=== PATIENT | male | born 1980 | race African-American/Black ===

== ENCOUNTER 2019-03-10 10:34 | Day surgery (SDC) | payer BC ==
--- NOTE | 2019-03-07 16:22 | Short Stay Summary ---
Short Stay Documentation Date of service: 03/10/19 - History H&P: obtained from office - Allergies and Medications Current Medications: Allergies No Known Allergies Allergy (Unverified 03/07/19 12:30) Home Medications Medication Instructions Recorded Confirmed Last Taken Type Atorvastatin 40 mg PO DAILY 03/07/19 03/07/19 Unknown History - Physical exam General appearance: no acute distress Integumentary: no rash, no abnormal pigmentation HEENT: Atraumatic Lungs: Normal air movement Neurological: Normal speech - Brief post op/procedure progress note Date of procedure: 03/10/19 (dictation:[id number]) Pre-op diagnosis: left chest mass Post-op diagnosis: same Procedure: Excision of left chest skin mass IVF - 900cc EBL min Anesthesia: GETA Findings: 3x2cm cylindrical mass Surgeon: ASAD FOX Estimated blood loss: minimal Pathology: list (skin mass) Specimen disposition: to lab Condition: stable - Hospital course Hospital course: uneventful - Disposition Condition at discharge: Stable Disposition: DC-01 TO HOME OR SELFCARE Short Stay Discharge Plan Activity: advance as tolerated Diet: regular Wound: open to air, keep clean and dry Special Instructions: no heavy lifting Additional Instructions: Post Operative Instructions Activity: no heavy lifting for next 1 week. May shower tomorrow. Pat dry the wound or wounds. Keep incision sites clean and dry After surgery, start with a light diet. Consider having a liquid diet first. If you do well, you can advance to a regular diet as you feel comfortable. Apply an ice pack to the wound or wounds for 10-20 minutes at a time. Do this at least 4-5 times a day. You can do it more if he would like. Alternate the use of ibuprofen and Tylenol for the first 2 days. I want you to take these on a scheduled basis. Take 600 mg of ibuprofen every 6 hours. Take 500 mg of Tylenol every 6 hours. You should alternate these 2 medicines. In other words, beginning with the ibuprofen. After 3 hours, take the Tylenol. Keep alternating the 2 drugs every 3 hours. Do this on a scheduled basis for the first 2 days. After that, you can take them as needed. It is very important that you use the prescription pain medicine only for very severe pain. Do not take the prescription medicine before you try using the ibuprofen and Tylenol. We will call you in a couple of days to see how youre doing. If you have any questions or concerns, always feel free to call the clinic at any time. WOUND:OPEN TO AIR, KEEP CLEAN AND DRY. CALL FOR F/U APPT. Follow up with: DR EREN [Other] - 7 Days ASAD FOX MD [Staff Physician] - 14 Days Forms: [facility] Work/School Release Form Prescriptions: HYDROcodone/APAP 5-325 [[place] 5-325 mg TAB] 1 each PO Q6HR PRN #5 tablet PRN Reason: Pain , Severe (7-10)
[~2019-03-10 10:34] MED LIST: ACETAMINOPHEN 500 MG TAB PO ONE; CELECOXIB 200 MG CAP PO NR; GABAPENTIN 300 MG CAP PO NR; MAGNESIUM OXIDE 400 MG TAB PO SCH; SODIUM CHLORIDE 0.9% 1000 ML 1,000 ML IV SCH; ceFAZolin/Water 2 GM/20 ML 2 GM/20 ML SYRINGE IV NR
--- NOTE | 2019-03-10 11:53 | Anesthesia Consultation ---
Anesthesia Consult and Med Hx Date of service: 03/10/19 - Airway Anesthetic Teeth Evaluation: Good ROM Head & Neck: Adequate Mental/Hyoid Distance: Adequate Mallampati Class: Class II Intubation Access Assessment: Good - Pulmonary Exam CTA: Yes - Cardiac Exam Cardiac Exam: RRR - Pre-Operative Health Status ASA Pre-Surgery Classification: ASA2 Proposed Anesthetic Plan: General, MAC - Pulmonary Hx Smoking: No Hx Sleep Apnea: No - Cardiovascular System Hx Hypertension: No - Central Nervous System Hx Psychiatric Problems: No - Hematic Hx Anemia: No - Other Systems Hx Alcohol Use: No Hx Substance Use: No Hx Cancer: No
--- NOTE | 2019-03-10 11:53 | Anesthesia Day of Surgery ---
Anesthesia Day of Surgery - Day of Surgery Patient Examined: Yes Patient H&P Reviewed: Yes Patient is NPO: Yes
[2019-03-10] MEDS ORDERED: HYDROmorphone 1 MG/1 ML INJ IV PRN (11:54)
[2019-03-10] MEDS ORDERED: ONDANSETRON 4 MG/2 ML INJ IV PRN (11:54)
[2019-03-10] MEDS ORDERED: MIDAZOLAM 2 MG/2 ML INJ IV NR (12:00)
[2019-03-10] MEDS ORDERED: LACTATED RINGERS 1,000 ML IV SCH (12:00)
[2019-03-10] MEDS ORDERED: ACETAMINOPHEN 500 MG TAB ONE (12:26)
[2019-03-10] MEDS ORDERED: BUPIVACAINE/PF (0.5%) 5 MG/1 ML 30 ML VIAL INFILTRATI ONE ×2 (14:00→14:37)
[2019-03-10] MEDS ORDERED: LIDOCAINE (1%) 10 MG/1 ML VIAL 20 ML MDV ONE (14:00)
[2019-03-10] MEDS ORDERED: MIDAZOLAM 2 MG/2 ML INJ ONE (14:07)
[2019-03-10] MEDS ORDERED: PROPOFOL 200 MG/20 ML VIAL IV ONE (14:07)
[2019-03-10] MEDS ORDERED: fentaNYL 100 MCG/2 ML INJ ONE (14:07)
[2019-03-10] MEDS ORDERED: LIDOCAINE MPF (2%) 20 MG/1 ML VIAL 5 ML ONE (14:07)
[2019-03-10] MEDS ORDERED: KETAMINE/STERILE WATER 50 MG/ML SYRINGE ONE (14:13)
[2019-03-10] MEDS ORDERED: LIDOCAINE (1%) 10 MG/1 ML VIAL 20 ML MDV INFILTRATI ONE (14:38)
[2019-03-10] MEDS ORDERED: SODIUM CHLORIDE 0.9% IRR 1,500 ML BOTTLE IR ONE (14:39)
--- NOTE | 2019-03-10 16:03 | Post Anesthesia Evaluation ---
- Post Anesthesia Evaluation Patient Participated: Yes Airway Patent: Yes Stable Respiratory Function: Yes Nausea/Vomiting: No Temp > 96.8F: Yes Pain Manageable: Yes Adequeate Hydration: Yes Anesthesia Complications: No
--- NOTE | 2019-03-10 16:11 | Operative Report ---
PREOPERATIVE DIAGNOSIS: Symptomatic left chest wall skin mass. POSTOPERATIVE DIAGNOSIS: Symptomatic left chest wall skin mass. PROCEDURE: Excision of left chest wall skin mass. ATTENDING PHYSICIAN: Criss Romo MD ANESTHESIA: General. ESTIMATED BLOOD LOSS: Minimal. FLUIDS: 900 mL. FINDINGS: Approximately 3.3 x 2 cm cylindrical mass in the subcutaneous tissue, appeared to be a cyst. No extension into the surrounding tissue. SPECIMENS: As above. DRAINS: None. COMPLICATIONS: None. DISPOSITION: Stable, transferred to Recovery Room. INDICATIONS: This is a 39-year-old male who reports that he has had an enlarging painful mass in the left upper chest for many years. He would like it removed as it is causing him quite a bit of discomfort. The patient was assessed to be a good candidate for excision. Procedure, risks, benefits were explained to the patient. Risks included, but were not limited to infection, bleeding, pain, injury to surrounding structures, possible need for further procedures in the future. The patient understood and consented. OPERATIVE NOTE: The patient was brought to the operating room and placed on the table in supine position. After adequate general anesthesia was established, the patient was prepped and draped in the usual sterile fashion. SCDs were in place. Antibiotics had been given. Time-out was called. I began by marking the lines of skin tension first. I applied a small amount of anesthetic in the planned incision line. I sharply dissected down to the mass itself and then carefully dissected the mass away from the surrounding tissue using a combination of sharp dissection and electrocautery. I was able to remove the mass intact. It appeared to be a cyst. Mass was measured and passed off table in sterile fashion. I injected additional local into the surrounding tissue. We had excellent hemostasis. Wound was irrigated and then I closed the deep layer with 3-0 Vicryl interrupted sutures. Skin was closed with a running 4-0 Monocryl subcuticular stitch. Skin was cleaned and dried. Dermabond was placed. The patient tolerated the procedure well. There were no complications. All counts were correct at the end of the case. JOB# [id number] LORNA/MATTHEW
[2019-03-10 16:15] VITALS: BP 129/82
== END 2019-03-10 17:10 | disposition home or self-care (01) ==
LOC: OR 10:34
PROVIDERS: ATTEND Surgery
DX: R22.2 Localized swelling, mass and lump, trunk (principal); L72.0 Epidermal cyst; E78.5 Hyperlipidemia, unspecified; Z98.890 Other specified postprocedural states; Z79.899 Other long term (current) drug therapy
CPT/HCPCS: 11404; 12032; 88304; J0690; J2250; J2405; J2704; J3010; J7030; J7120; 82962; 88307